=== PATIENT | female | born 1980 | race Caucasian/White ===

== ENCOUNTER 2021-01-21 01:51 | Emergency (ER) | payer SELFPAY ==
[2021-01-21 02:07] VITALS: BP 00/00; BP 100/57; PULSE 70; RESP 15; TEMP 37; O2SAT 98; BMI 19.5
--- NOTE | 2021-01-21 02:29 | ED.ALCOHOL ---
HPI - Alcohol General Chief Complaint: ETOH/Substance Use Stated Complaint: od Time Seen by Provider: 01/21/21 02:29 Source: patient and EMS Mode of arrival: EMS History of Present Illness HPI narrative: 40-year-old female who is brought in by EMS in an uncooperative and combative state declaring that I do not want to be here , you guys can keep me here . As per EMS patient was sleeping in the middle of the road. Patient states at 1 point that she drink 3 beers and then another point that she did 3 bags of heroin. Patient is noted to be drowsy and easily fell asleep but denied any shortness of breath, chest pain, nausea, vomiting. Review of Systems Review of Systems: Pertinent positives and negatives as stated in HPI 10 point review of systems is otherwise negative. [facility] Past Medical History Source: nursing notes reviewed Medical History Substance abuse Physical Exam Vital Signs: Vital Signs: Last Vital Signs Temp 98.6 F 01/21/21 02:07 Pulse 64 01/21/21 06:00 Resp 14 01/21/21 06:00 BP 105/66 01/21/21 06:00 Pulse Ox 98 01/21/21 06:00 Body Mass Index 19.5 VITAL SIGNS: Reviewed. GENERAL: chronically unwell, unkempt, agitated. HEAD: Normocephalic/atraumatic, EYES: PERRLA, EOMI , no pinpoint EARS: Ext canals without abnormality NOSE: Nares patent bilateral LUNGS: Normal breath sounds. No adventitious sounds or accessory muscle use. SpO2<98> CARDIOVASCULAR: Regular rate and rhythm without noted murmurs ABDOMEN: Soft, non-tender, non-distended with bowel sounds. MUSCULOSKELETAL: No tenderness, deformities, or effusions noted on gross inspection. EXTREMITIES: No cyanosis, clubbing or edema, there is a noted ulceration on right upper extremity that patient will not allow the examination. SKIN: Inspection of the skin reveals no rashes NEUROLOGIC: drowsy and oriented x 2. Strength and sensation to light touch were grossly intact x 4. PSYCH: initially combative but easily de-escalated and patient quietly fell asleep. Course Course Course Narrative: 40-year-old female with history and clinical presentation consistent with substance use and will out to sleep with monitoring and likely discharge if clinically sober in the morning And tolerating oral intake. Signed out to Dr Gonzalez. Discharge Plan Discharge Clinical Impression: Polysubstance (excluding opioids) dependence, daily use Patient Disposition: Home, Self-Care Instructions: Polysubstance Abuse (ED) Additional Instructions: Return to the ER for acute worsening of symptoms. Stop taking drugs.
[2021-01-21 03:51] VITALS: RESP 13; O2SAT 98
[2021-01-21 06:00] VITALS: BP 105/66; PULSE 64; RESP 14; O2SAT 98
[2021-01-21 08:00] VITALS: PULSE 80; RESP 16; O2SAT 100
--- NOTE | 2021-01-21 14:12 | PC.NURSE ---
pt briefly spoke with math coach - reporting she wants to leave, refused to give her name
--- NOTE | 2021-01-21 14:18 | PC.NURSE ---
pt up to the bathroom. ambulating well. continues to refuse care - vitals, change of bandage on her arm, telling her name all refused. pt continues to report she wants to leave. currently drinking soda
--- NOTE | 2021-01-21 16:10 | PC.NURSE ---
pt asked to sit in recliner, she is awake and refusing to provide her name. she wants to leave. she is drinking teresa fred and is refusing food
== END 2021-01-21 16:58 | disposition home or self-care (01) ==
LOC: HO.ED 16:53
PROVIDERS: Emergency Provider Emergency Medicine
DX: T40.1X1A Poisoning by heroin, accidental (unintentional), initial encounter (principal); Y92.9 Unspecified place or not applicable; R41.82 Altered mental status, unspecified
CPT/HCPCS: 99285